=== PATIENT | male | born 1995 | race Caucasian/White ===

== ENCOUNTER 2017-02-04 12:10 | Emergency (ER) | payer BC ==
[2017-02-04 12:22] VITALS: BP 120/73
[2017-02-04 16:00] LABS: Manual Entry Verification DOM0004; Mono Internal Control QC Line Present
--- NOTE | 2017-02-04 16:10 | ED ---
Throat Pain/Nasal Congestion - HPI Summary HPI Summary: 21 male presents with complaints of sore throat, fever/chills, headache and body aches that began around Wednesday02/01/17 however seemed to worsen this morning upon waking up. Was seen at [facility] for what he thought may have been an ear infection however he was told it may just be allergies. He was given flonase and claritin however did not have any relief. He took Tylenol for the fever this morning with some relief. Patient states he has possibly had exposure to mono. Did not have the flu shot this year. Admits to sick contacts. Denies difficulty breathing, abdominal iraheta and chest pain. Admits to a very mild intermittent non productive cough and nasal congestion. - History of Current Complaint Chief Complaint: EDUpperRespComplaint Time Seen by Provider: 02/04/17 12:25 Hx Obtained From: Patient Onset/Duration: Sudden Onset, Lasting Days, Worse Since Severity: Moderate Associated Signs And Symptoms: Positive: Dysphagia, Nasal Discharge Cough: Nonproductive - Allergies/Home Medications Allergies/Adverse Reactions: Allergies Allergy/AdvReac Type Severity Reaction Status Date / Time No Known Allergies Allergy Verified 02/04/17 15:13 PMH/Surg Hx/FS Hx/Imm Hx Endocrine/Hematology History: Denies: Hx Anemia Cardiovascular History: Denies: Hx Hypertension Respiratory History: Denies: Hx Asthma EENT History: Reports: Other - otitis media - Surgical History Surgery Procedure, Year, and Place: none - Immunization History Date of Influenza Vaccine: n/a Immunizations Up to Date: Yes Infectious Disease History: No Infectious Disease History: Denies: Traveled Outside the [place] in Last 30 Days - Family History Known Family History: Positive: None, Unknown - Social History Alcohol Use: Weekly Substance Use Type: Reports: None Smoking Status (MU): Never Smoked Tobacco Review of Systems Positive: Fever, Chills Eyes: Negative Positive: Sore Throat, Ear Ache, Nasal Discharge Cardiovascular: Negative Positive: Cough Gastrointestinal: Negative Genitourinary: Negative Positive: Myalgia Skin: Negative Positive: Headache Psychological: Normal All Other Systems Reviewed And Are Negative: Yes Physical Exam Triage Information Reviewed: Yes Vital Signs On Initial Exam: Initial Vitals Temp Pulse Resp BP Pulse Ox 99.2 F 123 20 120/73 97 02/04/17 12:17 02/04/17 12:17 02/04/17 12:17 02/04/17 12:17 02/04/17 12:17 tachycardia and low grade fever even after tylenol noted. Vital Signs Reviewed: Yes Appearance: Positive: No Pain Distress, Well-Nourished, Ill-Appearing Skin: Positive: Warm - hot to touch, Skin Color Reflects Adequate Perfusion, Dry Head/Face: Positive: Normal Head/Face Inspection Eyes: Positive: Normal, Conjunctiva Clear ENT: Positive: Normal ENT inspection, Hearing grossly normal, Pharyngeal erythema, Nasal congestion, TMs normal, Tonsillar swelling, Tonsillar exudate Dental: Positive: Cervical Lymphadenopathy Neck: Positive: Supple, Nontender Respiratory/Lung Sounds: Positive: Clear to Auscultation, Breath Sounds Present Cardiovascular: Positive: Normal, RRR, Pulses are Symmetrical in both Upper and Lower Extremities Abdomen Description: Positive: Nontender Bowel Sounds: Positive: Present Musculoskeletal: Positive: Normal, Strength/ROM Intact Neurological: Positive: Normal, Sensory/Motor Intact, Alert, Oriented to Person Place, Time Psychiatric: Positive: Normal, Affect/Mood Appropriate Diagnostics - Vital Signs Vital Signs Temp Pulse Resp BP Pulse Ox 02/04/17 12:17 99.2 F 123 20 120/73 97 - Laboratory Lab Results: Lab Results 02/04/17 02/04/17 02/04/17 Range/Units 13:12 13:14 13:47 Monoscreen Negative (Negative) Influenza A (Rapid) Negative (Negative) Influenza B (Rapid) Negative (Negative) Group A Strep Rapid Negative (Negative) Lab Statement: Any lab studies that have been ordered have been reviewed, and results considered in the medical decision making process. EENT Course/Dx - Course Course Of Treatment: due to recent dose of tylenol antipyretic/analgesic not needed at this time. strep, influenza and mono cultures obtained. all were negative. delay in mono results left patient here for a long period of time. was given first dose of amoxicillin while in ED. prescribed to take at home for 10 days due to Centor criteria and PE findings/vitals patient meets criteria for strep and treament regardless of strep culture. patient is aware of worsening signs and symptoms and encouraged re-testing for mono in the future for completeness. continue tylenol. - Differential Diagnoses Differential Diagnoses: Influenza, Otitis Media, Pharyngitis, Sinusitis, URI/ Bronchitis - Diagnoses Provider Diagnoses: Strep pharyngitis Discharge - Discharge Plan Condition: Stable Disposition: HOME Prescriptions: Amoxicillin CAP* [Amoxicillin 500 MG CAP*] 500 mg PO Q12H #19 cap Amoxicillin CAP* [Amoxicillin 500 MG CAP*] 500 mg PO Q12H #19 cap Patient Education Materials: Pharyngitis (ED), Strep Throat (ED) Referrals: [facility] ASHLEY Renteria [Primary Care Provider] - Additional Instructions: Take prescribed antibiotic for the next 10 days until all medication is finished even if your symptoms subside. Take Tylenol for fever/aches as needed every 6-8 hours. Gargle with salt water a couple of times a day. Drink plenty of fluids and wash hands frequently as this is contagious. Follow up with Ashley is recommended. If symptoms worsen such as tightening of your throat, swelling, difficulty breathing, high fever or new symptoms please seek medical attention promptly.
[2017-02-04] MEDS ORDERED: Amoxicillin (*) 875 MG TAB PO SCH (21:00)
== END 2017-02-04 16:32 | disposition home or self-care (01) ==
LOC: ED 12:10
DX: J02.0 Streptococcal pharyngitis (principal); R13.10 Dysphagia, unspecified; H92.09 Otalgia, unspecified ear; R06.02 Shortness of breath; R50.9 Fever, unspecified; R51 Headache
CPT/HCPCS: 36415; 86308; 87502; 87651; 99282

== ENCOUNTER 2017-10-15 01:14 | Emergency (ER) | payer BC ==
[2017-10-15 02:10] VITALS: BP 132/69
--- NOTE | 2017-10-15 06:37 | ED ---
Bria Mena Thomas, scribed for Russell Marrero MD on 10/15/17 at 0145 . Skin Complaint - HPI Summary HPI Summary: The pt is a 21 y/o M brought in by ambulance with a laceration to the top of his head that occurred earlier today. The patient is intoxicated and was drinking beer and wine earlier tonight. Per the patients friend, he was running down the street and hit his head against a phone pole accidentally. There is no active bleeding in the ED. The patient has mild pain to the area of the laceration. Pt denies loss of consciousness. He is accompanied by two of his friends. - History of Current Complaint Chief Complaint: EDLacSutureRecheck Time Seen by Provider: 10/15/17 01:35 Stated Complaint: FALL, HEAD LAC, ETOH Hx Obtained From: Patient Onset/Duration: Started Hours Ago - earlier this night, Still Present Timing: Constant Current Severity: Mild Pain Intensity: 0 Pain Scale Used: 0-10 Numeric Skin Location: Other: - top of head Character: Pain Alleviating Symptom(s): Nothing Associated Signs & Symptoms: Negative - LOC Related History: Other: - Ran into a phone pole - Allergy/Home Medications Allergies/Adverse Reactions: Allergies Allergy/AdvReac Type Severity Reaction Status Date / Time No Known Allergies Allergy Verified 02/04/17 15:13 PMH/Surg Hx/FS Hx/Imm Hx Previously Healthy: Yes Endocrine/Hematology History: Denies: Hx Anemia Cardiovascular History: Denies: Hx Hypertension Respiratory History: Denies: Hx Asthma - Surgical History Surgery Procedure, Year, and Place: none - Immunization History Date of Influenza Vaccine: n/a Infectious Disease History: No Infectious Disease History: Denies: Traveled Outside the [place] in Last 30 Days - Family History Known Family History: Positive: Other - Patient denies any relevant FHx - Social History Occupation: Student Lives: Dormitory/Roommates Alcohol Use: Weekly Hx Substance Use: No Substance Use Type: Reports: None Hx Tobacco Use: No Smoking Status (MU): Never Smoked Tobacco Review of Systems Positive: Other - Laceration to top of his head Neurological: Other - Intoxication; NEGATIVE: LOC All Other Systems Reviewed And Are Negative: Yes Physical Exam Triage Information Reviewed: Yes Vital Signs On Initial Exam: Initial Vitals Temp Pulse Resp BP Pulse Ox 99 F 123 16 113/52 98 10/15/17 01:17 10/15/17 01:17 10/15/17 01:17 10/15/17 01:17 10/15/17 01:17 Vital Signs Reviewed: Yes Appearance: Positive: Well-Appearing, No Pain Distress Skin: Positive: Warm, Skin Color Reflects Adequate Perfusion, Dry, Other - He has a 1.5 cm linear laceration with hematoma to his right parietal scalp. Head/Face: Positive: Normal Head/Face Inspection Eyes: Positive: EOMI, KONG, Other: - Pupils are dilated ot 6 mm bilaterally. ENT: Positive: Normal ENT inspection, Other - He smells of alcohol. Neck: Positive: Supple, Nontender Respiratory/Lung Sounds: Positive: Clear to Auscultation, Breath Sounds Present Cardiovascular: Positive: RRR, Pulses are Symmetrical in both Upper and Lower Extremities Abdomen Description: Positive: Nontender, Soft Bowel Sounds: Positive: Present Musculoskeletal: Positive: Normal, Strength/ROM Intact Neurological: Positive: Sensory/Motor Intact, Alert, Oriented to Person Place, Time, Other - He has poor insight and logic. He has wandering speech patterns. Procedures - Laceration/Wound Repair 1 Location: Other - Right parietal scalp Description: Linear Length, Depth and Shape: 1.5 cm in length Closure: Anette #__ - 1 staple Diagnostics - Vital Signs Vital Signs Temp Pulse Resp BP Pulse Ox 10/15/17 01:17 99 F 123 16 113/52 98 - Laboratory Lab Statement: Any lab studies that have been ordered have been reviewed, and results considered in the medical decision making process. - CT CT Head CT Interpretation: No Acute Changes - No acute intracranial hemorrhage mass effect or midline shift. Small right parietal scalp hematoma at the vertex and skin laceration with skin anette. Moderate right sphenoid sinus. ED physician has reviewed this report and agrees. CT Interpretation Completed By: Radiologist CT C-Spine CT Interpretation: No Acute Changes - No evidence of acute fracture or subluxation. Moderate right sphenoid sinusitis. ED physician has reviewed this report and agrees. CT Interpretation Completed By: Radiologist Re-Evaluation - Re-Evaluation First Eval Re-Evaluation Time: 06:25 Change: Improved Comment: He is alert and feeling better. Course/Dx - Course Course Of Treatment: intoxicated with head injury. CT head/neck is neg. Staple repair of lac. Sobered here. Now up and walking with clear speech and steady gait. Safe ride back to campus. - Diagnoses Provider Diagnoses: Alcohol intoxication, Closed head injury without loss of consciousness, Scalp laceration Discharge - Discharge Plan Condition: Stable Disposition: HOME Patient Education Materials: Laceration (ED), Alcohol Intoxication (ED) Referrals: [facility] - Tristen FLYNN [Primary Care Provider] - Additional Instructions: never drink to excess. Gatorade G2 and water to hydrate. Tums may help stomach discomfort. REturn with severe headache, vomiting, worse, new symptoms or other concerns. Staple needs to be removed in 10 days time by Health Services. The documentation as recorded by the Bria isidro Thomas accurately reflects the service I personally performed and the decisions made by , Russell Marrero MD.
--- NOTE | 2017-10-15 08:13 | RAD ---
INDICATION: Intracranial injury COMPARISON: None TECHNIQUE: Noncontrast axial source images was performed from the skull base to the thoracic inlet. Coronal and and sagittal reformatted images were generated. FINDINGS: Vertebrae: There is no fracture or acute focal bony lesion. Alignment: The craniocervical junction appears normal. The cervical vertebrae are normally aligned. Central Canal: There are no significant CT abnormalities of the central canal or foramina. MR imaging is a more sensitive method to evaluate the canal and foramina. Intervertebral disc spaces: The disc spaces are maintained. Brain: The visualized brain appears unremarkable. Soft tissues: The visualized soft tissue elements of the neck are unremarkable. The prevertebral soft tissues appear normal. The lung apices are clear. Other: There is right sphenoid sinusitis IMPRESSION: RIGHT SPHENOID SINUSITIS, OTHERWISE NEGATIVE
--- NOTE | 2017-10-15 08:31 | RAD ---
Indication: Laceration to top of head. Denies loss of consciousness. Comparison: No relevant prior exams available on the [facility] for comparison. Technique: Noncontrast CT vertex of skull through foramen magnum. Report: RIGHT posterior parietal scalp cutaneous asif. No loculated hematoma evident. The sulci, ventricles, and basal cisterns are normal for age. Wick matter white matter differentiation is preserved without evidence for edema. No intra or extra axial hemorrhage is detected. Unremarkable orbital contents. Negative for calvarial or skull base fracture. Mucosal thickening and retained secretions at the asymmetric small RIGHT sphenoid sinus. IMPRESSION: 1. RIGHT parietal scalp cutaneous asif. Negative for loculated hematoma. 2. No evidence for fracture or traumatic brain injury. 3. RIGHT sphenoid mucosal sinus disease.
== END 2017-10-15 06:40 | disposition home or self-care (01) ==
LOC: ED 01:14
DX: S01.01XA Laceration without foreign body of scalp, initial encounter (principal); S09.90XA Unspecified injury of head, initial encounter; W22.02XA Walked into lamppost, initial encounter; Y93.9 Activity, unspecified; Y92.9 Unspecified place or not applicable
CPT/HCPCS: 70450; 72125; 99282

== ENCOUNTER 2019-02-26 11:15 | Emergency (ER) | payer BC ==
[2019-02-26 14:12] VITALS: BP 126/75
--- NOTE | 2019-02-26 15:04 | ED ---
GI/ HPI - HPI Summary HPI Summary: Patient is a 23-year-old male presenting to the ED with a penile lesion. He states the lesion has been present for approximately one year, has been white and flat to the skin, located to the left side of the penis. Denies any history of STDs and states he gets regular checks, approximately 3 weeks at [facility] for diarrhea, chlamydia, HIV and syphilis. All of which are always negative. He has had the PREP course before with concern for HIV d/t unprotected sex, but this was negative before and after he completed treatment. He endorses no urinary symptoms or back pain. He states the lesion while present for 1 year, recently broke up this morning with white purulent drainage. Denies any pain to the area. Denies any drainage from the urethra. He has never had this before. He endorses one sexual partner, male. - History of Current Complaint Chief Complaint: EDUrogenitalProblems Time Seen by Provider: 02/26/19 12:39 Stated Complaint: SORE IN GENITAL AREA WITH DISCHARGE PER PT Hx Obtained From: Patient Onset/Duration: Started Hours Ago Timing: Constant Severity: Mild Current Severity: Mild Pain Intensity: 0 - Allergy/Home Medications Allergies/Adverse Reactions: Allergies Allergy/AdvReac Type Severity Reaction Status Date / Time No Known Allergies Allergy Verified 02/04/17 15:13 Home Medications: Home Medications NK [No Home Medications Reported] 02/26/19 [History Confirmed 02/26/19] PMH/Surg Hx/FS Hx/Imm Hx Previously Healthy: Yes Endocrine/Hematology History: Denies: Hx Anemia Cardiovascular History: Denies: Hx Hypertension Respiratory History: Denies: Hx Asthma - Surgical History Surgery Procedure, Year, and Place: none - Immunization History Date of Influenza Vaccine: n/a Hx Pertussis Vaccination: No Immunizations Up to Date: Yes Infectious Disease History: No Infectious Disease History: Denies: Traveled Outside the [place] in Last 30 Days - Family History Known Family History: Positive: None, Unknown, Other - Patient denies any relevant FHx - Social History Occupation: Unemployed, Student Lives: Dormitory/Roommates Alcohol Use: Weekly Hx Substance Use: No Substance Use Type: Reports: None Hx Tobacco Use: No Smoking Status (MU): Never Smoked Tobacco Review of Systems Constitutional: Negative Negative: Fever, Chills, Skin Diaphoresis Negative: Palpitations, Chest Pain Negative: Shortness Of Breath, Cough Negative: Arthralgia, Myalgia Positive: Other - small .3cm area of erythema, raised, appears to be a pustule without evidence of vesicles or urethral drainage. Negative: Rash, Bruising Neurological: Negative Psychological: Normal All Other Systems Reviewed And Are Negative: Yes Physical Exam Triage Information Reviewed: Yes Vital Signs On Initial Exam: Initial Vitals Temp Pulse Resp BP Pulse Ox 98.8 F 86 16 135/82 99 02/26/19 11:16 02/26/19 11:16 02/26/19 11:16 02/26/19 11:16 02/26/19 11:16 Vital Signs Reviewed: Yes Appearance: Positive: Well-Appearing, Well-Nourished Skin: Positive: Skin Color Reflects Adequate Perfusion Head/Face: Positive: Normal Head/Face Inspection Eyes: Positive: EOMI, Conjunctiva Clear Neck: Positive: Supple, No Lymphadenopathy Respiratory/Lung Sounds: Positive: Clear to Auscultation, Breath Sounds Present Cardiovascular: Positive: Pulses are Symmetrical in both Upper and Lower Extremities Bowel Sounds: Positive: Present Male Genital Exam: Positive: Lesions, Other - small .3cm area of erythema, raised, appears to be a pustule without evidence of vesicles or urethral drainageA. Negative: Bleeding, Epididymal Tenderness, Inguinal Tenderness, Scrotum Tenderness (R), Scrotum Tenderness (L), Testicular Tenderness (R), Testicular Tenderness (L), Urethral Discharge Musculoskeletal: Positive: Normal, Strength/ROM Intact Neurological: Positive: Speech Normal Psychiatric: Positive: Normal, Affect/Mood Appropriate AVPU Assessment: Alert Diagnostics - Vital Signs Vital Signs Temp Pulse Resp BP Pulse Ox 02/26/19 14:10 96.9 F 69 19 126/75 98 02/26/19 11:16 98.8 F 86 16 135/82 99 - Laboratory Lab Statement: Any lab studies that have been ordered have been reviewed, and results considered in the medical decision making process. GIGU Course/Dx - Course Course Of Treatment: Culture obtained to the left side of the penis. There is a small 0.3 cm in diameter erythematous area with purulent drainage. This was cultured and genital culture sent for assessment. This does not appear to be HSV or HPV. Patient was recently tested for gonorrhea, chlamydia, syphilis and HIV. Patient has been present times one year, but recently this morning came to a head and caused purulent drainage. I have discussed with patient and I will call him with any positive results. He is okay for plan and discharged at this time. He will use moist heat to the area for comfort and to pull out any bacteria. - Diagnoses Provider Diagnoses: Penile lesion Discharge - Sign-Out/Discharge Documenting (check all that apply): Patient Departure Patient Received Moderate/Deep Sedation with Procedure: No - Discharge Plan Condition: Stable Disposition: HOME Referrals: [facility] - Tristen FLYNN [Primary Care Provider] - Additional Instructions: I will call you with any results when returned Continue with warm compresses to the area - Billing Disposition and Condition Condition: STABLE Disposition: Home
== END 2019-02-26 14:10 | disposition home or self-care (01) ==
LOC: ED 11:15
DX: L98.9 Disorder of the skin and subcutaneous tissue, unspecified (principal)
CPT/HCPCS: 87070; 87077; 99282